=== PATIENT | female | born 1985 | race Asian ===

== ENCOUNTER 2020-01-25 19:47 | Emergency (ER) | payer OTHER ==
[~2020-01-25] VITALS: Ht 154.9 cm; Wt 40.8 kg
[2020-01-25 23:00] VITALS: BP 132/62
== END 2020-01-25 23:00 | disposition home or self-care (01) ==
LOC: ED 19:47
DX: S09.8XXA Other specified injuries of head, initial encounter (principal); V49.49XA Driver injured in collision with other motor vehicles in traffic accident, initial encounter; Y93.I9 Activity, other involving external motion; Y92.413 State road as the place of occurrence of the external cause; Y99.8 Other external cause status